=== PATIENT | female | born 1990 | race Caucasian/White ===

== ENCOUNTER 2021-05-03 09:34 | Emergency (ER) | payer OTHER ==
--- NOTE | 2021-05-03 09:54 | ERPHSYRPT ---
- History of Present Illness Time Seen by Provider: 05/03/21 09:40 Historian: patient Exam Limitations: no limitations Patient Subjective Stated Complaint: Pt states "I had pain in the center of my chest that started last night. It comes and goes. When the pain hits it gets worse when I breath. I was home alone and I got nervous so I came in to get checked." Triage Nursing Assessment: Pt presented alert and oriented X 3, skin pwd Pt ambulates with an upright steady gait, able to speak in clear full sentences pt in no apparent respiratory distress. Pt resting comfortably on the bed. Physician History: Patient is a 31-year-old female presents to our ED with complaints of substernal chest pain. Patient states pain started last night and lasted several minutes. Pain resolved. Patient states the pain comes and goes. Patient states the pain is worse when she takes a deep breath. Currently patient is pain-free. When present pain described as an ache that is well localized. No radiation. No associated nausea or vomiting. No diaphoresis. No rash. No trauma. No fever. Patient currently asymptomatic. Patient is not a smoker. Patient is no longer currently on control. Patient states she has had a stroke in the past related to control. Patient worried about blood clot. D-dimer ordered. Patient voices no other complaints or concerns at this time. Timing/Duration: yesterday Activities at Onset: none Quality: aching Location: substernal Chest Pain Radiation: no radiation Severity of Pain-Max: mild Severity of Pain-Current: none Modifying Factors: Improves With: other (Deep breath) Associated Symptoms: denies symptoms Prior Chest Pain/Cardiac Workup: no prior chest pain Nitro Today/Relief: no nitro taken today Aspirin Treatment Today: no aspirin today Allergies/Adverse Reactions: No Known Drug Allergies Allergy (Verified 02/18/14 00:51) Home Medications: Duloxetine HCl 30 mg [Cymbalta 30 MG Capsule] 30 mg PO DAILY 05/03/21 [History] Levothyroxine Sodium [Levothyroxine] 50 mcg PO DAILY 05/03/21 [History] Hx Tetanus, Diphtheria Vaccination/Date Given: No Hx Influenza Vaccination/Date Given: No Hx Pneumococcal Vaccination/Date Given: No Immunizations Up to Date: Yes Travel Risk - International Travel Have you traveled outside of the country in past 3 weeks: No - Coronavirus Screening Are you exhibiting any of the following symptoms?: No Close contact with a COVID-19 positive Pt in past 14-21 Days: No - Vaccine Status Have you recieved a Covid-19 vaccination: No - Review of Systems Constitutional: No Symptoms, No Fever, No Chills Eyes: No Symptoms Ears, Nose, & Throat: No Symptoms Respiratory: No Symptoms, No Cough, No Dyspnea Cardiac: No Symptoms, No Chest Pain, No Edema, No Syncope Abdominal/Gastrointestinal: No Symptoms, No Abdominal Pain, No Nausea, No Vom iting, No Diarrhea Genitourinary Symptoms: No Symptoms, No Dysuria Musculoskeletal: No Symptoms, No Back Pain, No Neck Pain Skin: No Symptoms, No Rash Neurological: No Symptoms, No Dizziness, No Focal Weakness, No Sensory Changes Psychological: No Symptoms Endocrine: No Symptoms Hematologic/Lymphatic: No Symptoms All Other Systems: Reviewed and Negative - Past Medical History Pertinent Past Medical History: Yes Neurological History: Stroke Respiratory History: Asthma Endocrine Medical History: Hypothyroidism Other Medical History: POSS OVARIAN CYST - Past Surgical History Past Surgical History: Yes Musculoskeletal: Orthopedic Surgery Other Surgical History: left knee surgery - Social History Smoking Status: Never smoker Exposure to second hand smoke: No Drug Use: none Patient Lives Alone: No - Female History Hx Last Menstrual Period: 04/19/2021 Hx Now: No - Nursing Vital Signs Nursing Vital Signs: Initial Vital Signs Temperature 97.2 F 05/03/21 09:35 Pulse Rate 86 05/03/21 09:35 Respiratory Rate 20 05/03/21 09:35 Blood Pressure 131/88 05/03/21 09:35 O2 Sat by Pulse Oximetry 98 05/03/21 09:35 Pain Scale Pain Intensity 0 - Physical Exam General Appearance: no apparent distress, alert Eye Exam: PERRL/EOMI, eyes nml inspection Ears, Nose, Throat Exam: normal ENT inspection, TMs normal, moist mucous membranes Neck Exam: normal inspection, non-tender, supple, full range of motion Respiratory Exam: normal breath sounds, lungs clear, airway intact, No chest tenderness, No respiratory distress Cardiovascular Exam: regular rate/rhythm, normal heart sounds, normal peripheral pulses Gastrointestinal/Abdomen Exam: soft, normal bowel sounds, No tenderness, No mass, No guarding Back Exam: normal inspection, No CVA tenderness, No vertebral tenderness Extremity Exam: normal inspection, normal range of motion Neurologic Exam: alert, oriented x 3, cooperative, normal mood/affect, sensation nml, No motor deficits Skin Exam: normal color, warm, dry Lymphatic Exam: No adenopathy SpO2 Interpretation: normal SpO2: 98 O2 Delivery: Room Air - Course Nursing assessment & vital signs reviewed: Yes EKG Interpreted by Me: RATE ([id number]), Sinus Rhythm, NORMAL AXIS, NORMAL INTERVALS - Radiology Exams Chest X-ray Interpretation: Teleradiologist Report (Portable chest demonstrates normal heart lungs and bony thorax.) Ordered Tests: Active Orders 24 hr Category Date Time Status Transport Aircrewman STAT Care 05/03/21 09:42 Active EKG-ER Only STAT Care 05/03/21 09:41 Active IV Insertion STAT Care 05/03/21 09:41 Active Pulse Oximetry (ED) STAT Care 05/03/21 09:41 Active CHEST 1 VIEW (PORTABLE) Stat Exams 05/03/21 09:42 Completed CBC W DIFF Stat Lab 05/03/21 09:45 Completed CMP Stat Lab 05/03/21 09:45 Completed D-DIMER QUANTITATIVE Stat Lab 05/03/21 09:45 Completed TROPONIN Q3H Lab 05/03/21 09:45 Completed TROPONIN Q3H Lab 05/03/21 12:45 Ordered TROPONIN Q3H Lab 05/03/21 15:45 Ordered TROPONIN Q3H Lab 05/03/21 18:45 Ordered TROPONIN Q3H Lab 05/03/21 21:45 Ordered UA W/RFX UR CULTURE Stat Lab 05/03/21 09:41 Ordered Lab/Rad Data: Laboratory Result Diagrams 05/03/21 09:45 05/03/21 09:45 Laboratory Results 05/03/21 05/03/21 05/03/21 Range/Units 09:45 09:45 09:45 WBC (4.0-10.5) K/mm3 RBC (4.1-5.4) M/mm3 Hgb (12.0-16.0) gm/dl Hct (35-47) % MCV (78-100) fl MCH (26-32) pg MCHC (32-36) g/dl RDW (11.5-14.0) % Plt Count (150-450) K/mm3 MPV (7.5-11.0) fl Gran % (36.0-66.0) % Eos # (Auto) (0-0.5) Absolute Lymphs (auto) (1.0-4.6) Absolute Monos (auto) (0.0-1.3) Lymphocytes % (24.0-44.0) % Monocytes % (0.0-12.0) % Eosinophils % (0.00-5.0) % Basophils % (0.0-0.4) % Absolute Granulocytes (1.4-6.9) Basophils # (0-0.4) D-Dimer < 215 L (215-500) ng/mL Sodium 140 (137-145) mmol/L Potassium 3.8 (3.5-5.1) mmol/L Chloride 106 (98-107) mmol/L Carbon Dioxide 25 (22-30) mmol/L Anion Gap 12.9 (5-15) MEQ/L BUN 13 (7-17) mg/dL Creatinine 0.61 (0.52-1.04) mg/dL Estimated GFR > 60.0 ML/MIN Glucose 114 H (74-106) mg/dL Calcium 8.9 (8.4-10.2) mg/dL Total Bilirubin 0.70 (0.2-1.3) mg/dL AST 43 H (14-36) U/L ALT 38 H (0-35) U/L Alkaline Phosphatase 73 (38-126) U/L Troponin I < 0.012 (0.000-0.034) ng/mL Serum Total Protein 7.0 (6.3-8.2) g/dL Albumin 4.3 (3.5-5.0) g/dL 05/03/21 Range/Units 09:45 WBC 8.9 (4.0-10.5) K/mm3 RBC 4.96 (4.1-5.4) M/mm3 Hgb 14.5 (12.0-16.0) gm/dl Hct 44.3 (35-47) % MCV 89.3 (78-100) fl MCH 29.2 (26-32) pg MCHC 32.7 (32-36) g/dl RDW 12.8 (11.5-14.0) % Plt Count 331 (150-450) K/mm3 MPV 10.1 (7.5-11.0) fl Gran % 65.4 (36.0-66.0) % Eos # (Auto) 0.13 (0-0.5) Absolute Lymphs (auto) 2.37 (1.0-4.6) Absolute Monos (auto) 0.50 (0.0-1.3) Lymphocytes % 26.7 (24.0-44.0) % Monocytes % 5.6 (0.0-12.0) % Eosinophils % 1.5 (0.00-5.0) % Basophils % 0.8 (0.0-0.4) % Absolute Granulocytes 5.80 (1.4-6.9) Basophils # 0.07 (0-0.4) D-Dimer (215-500) ng/mL Sodium (137-145) mmol/L Potassium (3.5-5.1) mmol/L Chloride (98-107) mmol/L Carbon Dioxide (22-30) mmol/L Anion Gap (5-15) MEQ/L BUN (7-17) mg/dL Creatinine (0.52-1.04) mg/dL Estimated GFR ML/MIN Glucose (74-106) mg/dL Calcium (8.4-10.2) mg/dL Total Bilirubin (0.2-1.3) mg/dL AST (14-36) U/L ALT (0-35) U/L Alkaline Phosphatase (38-126) U/L Troponin I (0.000-0.034) ng/mL Serum Total Protein (6.3-8.2) g/dL Albumin (3.5-5.0) g/dL - Progress Progress: improved Air Movement: good Progress Note: Patient reassessed. She feels well. Patient remains asymptomatic. Chest x-ray negative. D-dimer negative. Troponin negative. Labs essentially nonremarkable. Vitals are within normal limits. Patient states he is ready for discharge. No indication for further work-up at this time. Will discharge home. Patient's chest pain worse with deep inspiration. Likely pleurisy. Possible GERD patient agrees to follow-up with her primary care doctor within 48 hours for reevaluation. Portions of this note were created with voice recognition technology. There may be grammatical, spelling, punctuation or sound alike errors 05/03/21 10:38 05/03/21 10:40 Blood Culture(s) Obtained: No Antibiotics given: No Counseled pt/family regarding: lab results, diagnosis, need for follow-up, rad results - Departure Departure Disposition: Home Clinical Impression: Pleuritic chest pain Condition: Stable Critical Care Time: No Additional Instructions: Discharge/Care Plan JOHN GUTIÉRREZ was seen on 05/03/21 in the Emergency Room. The patient was counseled regarding Diagnosis,Lab results, Imaging studies, need for follow up and when to return to the Emergency Room. Prescriptions given: Discharge Note I have spoken with the patient and/or caregivers. I have explained the patient's condition, diagnosis and treatment plan based on the information available to me at this time. I have answered the patient's and/or caregiver's questions and addressed any concerns. The patient and/or caregivers have as good understanding of the patient's diagnosis, condition and treatment plan as can be expected at this point. The vital signs have been stable. The patient's condition is stable and appropriate for discharge from the emergency department. The patient will pursue further outpatient evaluation with the primary care physician or other designated or consulting physician as outlined in the disc harge instructions. The patient and/or caregivers are agreeable to this plan of care and follow-up instructions have been explained in detail. The patient and/or caregivers have received these instruction. The patient/and or caregivers are aware that any significant change in condition or worsening of symptoms should prompt an immediate return to this or the closest emergency department or call 911.
[2021-05-03 09:58] LABS: BASOPHIL % 0.8 % (0.0-0.4); Basophil (Absolute #) 0.07 (0-0.4); Eosinophil % 1.5 % (0.00-5.0); Eosinophil (Absolute #) 0.13 (0-0.5); Hematocrit 44.3 % (35-47); Hemoglobin 14.5 gm/dl (12.0-16.0); Lymphocyte (Absolute #) 2.37 (1.0-4.6); Lymphocytes % 26.7 % (24.0-44.0); Mean Cell Volume 89.3 fl (78-100); Mean Corpuscular Hemoglobin 29.2 pg (26-32); Mean Corpuscular Hgb Concent. 32.7 g/dl (32-36); Mean Platelet Volume 10.1 fl (7.5-11.0); Monocytes % 5.6 % (0.0-12.0); Neutrophil % 65.4 % (36.0-66.0); Platelet Count 331 K/mm3 (150-450); Red Blood Count 4.96 M/mm3 (4.1-5.4); Red Cell Distribution Width 12.8 % (11.5-14.0); White Blood Count 8.9 K/mm3 (4.0-10.5)
[2021-05-03 10:08] LABS: ALBUMIN 4.3 g/dL (3.5-5.0); ALKALINE PHOSPHATASE 73 U/L (38-126); ANION GAP 12.9 MEQ/L (5-15); BLOOD UREA NITROGEN 13 mg/dL (7-17); CHLORIDE 106 mmol/L (98-107); Calcium 8.9 mg/dL (8.4-10.2); Carbon Dioxide 25 mmol/L (22-30); Creatinine 1 0.61 mg/dL (0.52-1.04); EST GLOMERULAR FILTRATION RATE > 60.0 ML/MIN; Glucose 114 mg/dL (74-106); Potassium 3.8 mmol/L (3.5-5.1); SGOT/AST 43 U/L (14-36); SGPT/ALT 38 U/L (0-35); SODIUM 140 mmol/L (137-145)
--- NOTE | 2021-05-03 10:19 | XRAY ---
Indication: Intermittent chest pain. Comparison: None Portable chest demonstrates normal heart, lungs, and bony thorax.
== END 2021-05-03 11:45 | disposition home or self-care (01) ==
LOC: ED 09:34
DX: R07.81 Pleurodynia (principal)
CPT/HCPCS: 36000; 36415; 71045; 80053; 84484; 85025; 85379; 93005; 93041; 94760; 99284

== ENCOUNTER 2023-11-03 11:28 | Emergency (ER) | payer OTHER ==
[2023-11-03 11:53] VITALS: RESP 18; TEMP 96.6
[2023-11-03] MEDS ORDERED: TORAdol 30 mg Injection ONE (12:25)
[2023-11-03] MEDS: TORAdol 30 mg Injection IV ONE (12:27)
[2023-11-03 12:31] LABS: HCG URINE TEST NEGATIVE (NEGATIVE)
[2023-11-03 12:55] LABS: Absolute Neutrophil Ct (ANC) 6.34 x10^3/uL (1.4-6.9); BASOPHIL % 1.2 % (0.0-0.4); Basophil (Absolute #) 0.12 x10^3/uL (0-0.4); Eosinophil % 1.3 % (0.00-5.0); Eosinophil (Absolute #) 0.13 x10^3/uL (0-0.5); Hematocrit 42.9 % (35-47); Hemoglobin 14.5 g/dL (12.0-16.0); IMMATURE GRAN # 0.04 x10^3u/L (0.00-0.03); IMMATURE GRAN % 0.4 % (0.00-0.4); Lymphocyte (Absolute #) 2.78 x10^3/uL (1.0-4.6); Lymphocytes % 27.8 % (24.0-44.0); Mean Cell Volume 88.5 fL (78-100); Mean Corpuscular Hemoglobin 29.9 pg (26-32); Mean Corpuscular Hgb Concent. 33.8 g/dL (32-36); Mean Platelet Volume 10.6 fL (7.5-11.0); Monocyte (Absolute #) 0.58 x10^3/uL (0.0-1.3); Monocytes % 5.8 % (0.0-12.0); Neutrophil % 63.5 % (36.0-66.0); Platelet Count 323 x10^3/uL (150-450); Red Blood Count 4.85 x10^6/uL (4.1-5.4); Red Cell Distribution Width 12.3 % (11.5-14.0)
[2023-11-03 13:18] LABS: ALBUMIN 4.4 g/dL (3.5-5.0); BILIRUBIN,TOTAL 0.7 mg/dL (0.2-1.3); Calcium 9.3 mg/dL (8.4-10.2); Creatinine 1 0.61 mg/dL (0.52-1.04); EST GLOMERULAR FILTRATION RATE 122.5 ML/MIN; NT PRO BNPII 38.6 pg/mL (<300); Potassium 3.7 mmol/L (3.5-5.1); Total Protein 7.3 g/dL (6.3-8.2)
[2023-11-03 14:14] VITALS: BP 129/82; PULSE 77; O2SAT 97
[2023-11-03] MEDS ORDERED: NORCO 10-325 MG PO PRN (15:13)
--- NOTE | 2023-11-03 15:19 | ERPHSYRPT ---
- History of Present Illness Time Seen by Provider: 11/03/23 11:42 Historian: patient Exam Limitations: no limitations Patient Subjective Stated Complaint: Left sided rib pain Triage Nursing Assessment: Patient ambulated back to ED and transferred self to bed. Patient A+O X3. Patient's skin pink, warm and dry. Patient complains of pain underneath left breast/rib that is worse when moving 10/10 for the past week. Patient states over the past month she has had an occasional cough. Physician History: 33-year-old female presented to the ER with complaint of left sided rib pain for 1 week. Patient denies any fall or trauma. Patient reported it is underneath her breast and moves backward, aggravated with palpation, deep breathing and moving in a certain direction. Patient has tried [id number] medication li ke Tylenol with no significant relief. No difficulty breathing. Occasional cough. No history of coronary artery disease, PE. Aspirin Treatment Today: no aspirin today Allergies/Adverse Reactions: No Known Drug Allergies Allergy (Verified 11/03/23 11:42) Hx Tetanus, Diphtheria Vaccination/Date Given: No Hx Influenza Vaccination/Date Given: No Hx Pneumococcal Vaccination/Date Given: No Immunizations Up to Date: Yes Travel Risk - International Travel Have you traveled outside of the country in past 3 weeks: No - Emerging Infectious Disease Are you exhibiting symptoms associated with any current EIDs: No - Review of Systems Constitutional: No Symptoms Ears, Nose, & Throat: No Symptoms Respiratory: Cough Cardiac: Chest Pain Abdominal/Gastrointestinal: No Symptoms Genitourinary Symptoms: No Symptoms Musculoskeletal: No Symptoms Skin: No Symptoms Neurological: No Symptoms Psychological: No Symptoms Endocrine: No Symptoms Hematologic/Lymphatic: No Symptoms - Past Medical History Pertinent Past Medical History: Yes Neurological History: Stroke Respiratory History: Asthma Endocrine Medical History: Hypothyroidism Other Medical History: POSS OVARIAN CYST - Past Surgical History Past Surgical History: Yes Musculoskeletal: Orthopedic Surgery Other Surgical History: left knee surgery - Female History Hx Last Menstrual Period: ablation Hx Now: (unkn) - Social History Smoking Status: Never smoker Exposure to second hand smoke: No Drug Use: marijuana Patient Lives Alone: No - Nursing Vital Signs Nursing Vital Signs: Initial Vital Signs Temperature 96.6 F 11/03/23 11:45 Pulse Rate 73 11/03/23 11:45 Respiratory Rate 18 11/03/23 11:45 Blood Pressure 124/82 11/03/23 11:45 O2 Sat by Pulse Oximetry 96 11/03/23 11:45 Pain Scale Pain Intensity 9 - Physical Exam General Appearance: no apparent distress, alert Eye Exam: PERRL/EOMI Ears, Nose, Throat Exam: normal ENT inspection, TMs normal, pharynx normal, moist mucous membranes Neck Exam: normal inspection, non-tender, supple, full range of motion Respiratory Exam: normal breath sounds, chest tenderness (Left mid to lower chest wall with no crepitus. No rash. Moderate tenderness.) Cardiovascular Exam: regular rate/rhythm, normal heart sounds Gastrointestinal/Abdomen Exam: soft, normal bowel sounds, No tenderness Back Exam: normal inspection, normal range of motion Extremity Exam: normal inspection, normal range of motion Neurologic Exam: alert, oriented x 3, cooperative Skin Exam: normal color SpO2 Interpretation: normal SpO2: 97 O2 Delivery: Room Air () - Course EKG Interpreted by Me: RATE ([id number]), NORMAL AXIS, NORMAL INTERVALS, Q-wave Ordered Tests: Active Orders 24 hr Category Date Time Status Literacy Teacher STAT Care 11/03/23 12:05 Completed EKG-ER Only STAT Care 11/03/23 12:05 Completed IV Insertion STAT Care 11/03/23 12:05 Completed RIBS UNILATERAL W/ PA CXR Stat Exams 11/03/23 12:06 Taken CBC W DIFF Stat Lab 11/03/23 12:50 Completed CMP Stat Lab 11/03/23 12:50 Completed D-DIMER QUANTITATIVE Stat Lab 11/03/23 12:50 Completed HCG QUALITATIVE, URINE Stat Lab 11/03/23 12:10 Completed NT PRO BNPII Stat Lab 11/03/23 12:50 Completed TROPONIN Q4H Lab 11/03/23 12:50 Completed Medication Summary Discontinued Medications Generic Name Dose Route Start Last Admin Trade Name Freq PRN Reason Stop Dose Admin Hydrocodone Bitart/Acetaminophen 1 tablet 11/03/23 15:13 Hydrocodone/Acetamin 10-325 Mg Tablet PO 11/08/23 15:12 Q4H PRN PRN PAIN Ketorolac Tromethamine 30 mg 11/03/23 12:06 11/03/23 12:27 Ketorolac Tromethamine 30 Mg/Ml Inj IV 11/03/23 12:07 30 mg STAT ONE Administration Ketorolac Tromethamine Confirm 11/03/23 12:25 Ketorolac Tromethamine 30 Mg/Ml Inj Administered 11/03/23 12:26 Dose 30 mg .ROUTE .K-MED ONE Lab/Rad Data: Laboratory Result Diagrams 11/03/23 12:50 11/03/23 12:50 Laboratory Results 11/03/23 11/03/23 11/03/23 Range/Units 12:50 12:50 12:50 WBC (4.0-10.5) x10^3/uL RBC (4.1-5.4) x10^6/uL Hgb (12.0-16.0) g/dL Hct (35-47) % MCV (78-100) fL MCH (26-32) pg MCHC (32-36) g/dL RDW (11.5-14.0) % Plt Count (150-450) x10^3/uL MPV (7.5-11.0) fL Gran % (36.0-66.0) % Immature Gran % (Auto) (0.00-0.4) % Nucleat RBC Rel Count (0.00-0.1) % Eos # (Auto) (0-0.5) x10^3/uL Immature Gran # (Auto) (0.00-0.03) x10^3u/L Absolute Lymphs (auto) (1.0-4.6) x10^3/uL Absolute Monos (auto) (0.0-1.3) x10^3/uL Absolute Nucleated RBC (0.00-0.01) x10^3u/L Lymphocytes % (24.0-44.0) % Monocytes % (0.0-12.0) % Eosinophils % (0.00-5.0) % Basophils % (0.0-0.4) % Absolute Granulocytes (1.4-6.9) x10^3/uL Basophils # (0-0.4) x10^3/uL D-Dimer < 0.19 (0.0-0.50) mg/L Sodium 141 (135-145) mmol/L Potassium 3.7 (3.5-5.1) mmol/L Chloride 111 H (98-107) mmol/L Carbon Dioxide 22 (22-30) mmol/L Anion Gap 11.0 (5-15) MEQ/L BUN 13 (7-17) mg/dL Creatinine 0.61 (0.52-1.04) mg/dL Estimated GFR 122.5 ML/MIN Glucose 95 (74-106) mg/dL Calcium 9.3 (8.4-10.2) mg/dL Total Bilirubin 0.70 (0.2-1.3) mg/dL AST 34 (14-36) U/L ALT 40 H (0-35) U/L Alkaline Phosphatase 64 (38-126) U/L Troponin I < 0.012 (0.000-0.033) ng/mL NT-Pro-B Natriuret Pep 38.6 (<300) pg/mL Serum Total Protein 7.3 (6.3-8.2) g/dL Albumin 4.4 (3.5-5.0) g/dL Urine HCG, Qual (NEGATIVE) 11/03/23 11/03/23 Range/Units 12:50 12:10 WBC 10.0 (4.0-10.5) x10^3/uL RBC 4.85 (4.1-5.4) x10^6/uL Hgb 14.5 (12.0-16.0) g/dL Hct 42.9 (35-47) % MCV 88.5 (78-100) fL MCH 29.9 (26-32) pg MCHC 33.8 (32-36) g/dL RDW 12.3 (11.5-14.0) % Plt Count 323 (150-450) x10^3/uL MPV 10.6 (7.5-11.0) fL Gran % 63.5 (36.0-66.0) % Immature Gran % (Auto) 0.4 (0.00-0.4) % Nucleat RBC Rel Count 0.0 (0.00-0.1) % Eos # (Auto) 0.13 (0-0.5) x10^3/uL Immature Gran # (Auto) 0.04 H (0.00-0.03) x10^3u/L Absolute Lymphs (auto) 2.78 (1.0-4.6) x10^3/uL Absolute Monos (auto) 0.58 (0.0-1.3) x10^3/uL Absolute Nucleated RBC 0.00 (0.00-0.01) x10^3u/L Lymphocytes % 27.8 (24.0-44.0) % Monocytes % 5.8 (0.0-12.0) % Eosinophils % 1.3 (0.00-5.0) % Basophils % 1.2 (0.0-0.4) % Absolute Granulocytes 6.34 (1.4-6.9) x10^3/uL Basophils # 0.12 (0-0.4) x10^3/uL D-Dimer (0.0-0.50) mg/L Sodium (135-145) mmol/L Potassium (3.5-5.1) mmol/L Chloride (98-107) mmol/L Carbon Dioxide (22-30) mmol/L Anion Gap (5-15) MEQ/L BUN (7-17) mg/dL Creatinine (0.52-1.04) mg/dL Estimated GFR ML/MIN Glucose (74-106) mg/dL Calcium (8.4-10.2) mg/dL Total Bilirubin (0.2-1.3) mg/dL AST (14-36) U/L ALT (0-35) U/L Alkaline Phosphatase (38-126) U/L Troponin I (0.000-0.033) ng/mL NT-Pro-B Natriuret Pep (<300) pg/mL Serum Total Protein (6.3-8.2) g/dL Albumin (3.5-5.0) g/dL Urine HCG, Qual NEGATIVE (NEGATIVE) - Progress Progress: improved, re-examined Air Movement: good Progress Note: 11/03/23 15:16 33-year-old is evaluated in the ER for left anterior lateral and posterior chest wall pain without any fall or trauma, moderate to severe sharp, aggravated with movements palpation and deep breathing. Minimal nonproductive cough occasionally. Patient has no history of PE or coronary artery disease. EKG is normal sinus rhythm. I did not appreciate any rash on the chest wall. No crepitus. I have obtained rib series and PA chest x-ray which are negative for acute rib fracture, pneumothorax reviewed by me, official report is pending. Patient has normal white count, unremarkable chemistries and negative troponin/D-dimers. Her pain is more of a musculoskeletal. She is given Toradol and [place] for symptomatic relief, on reevaluation she is feeling much better. Pain is reproducible and seems more of a musculoskeletal and less likely cardiac etiology. With 1 negative troponin and negative D-dimers I do not think patient needs any other workup in the ER. I will put her on NSAIDs to go home. Recommended deep breathing exercises and outpatient follow-up. Discussed signs symptoms of worsening needing return to ER which she seems understanding. S table for discharge. Blood Culture(s) Obtained: No Antibiotics given: No Counseled pt/family regarding: lab results, diagnosis, need for follow-up, rad results Medical Desision Making - Diagnostic Testing Diagnostic test were ordered, analyzed, and reviewed by me: Yes Radiological Interpretation: Interpreted by me, Reviewed by me - Risk of complications The pt has a mod risk of morbidity or mortality based on: Need for prescription drug management - Departure Departure Disposition: Home Clinical Impression: Chest wall pain Condition: Stable Critical Care Time: No Referrals: KAVON MAC MD [Primary Care Provider] - Follow up with PCP 1 day Instructions: Bruised Rib, Chest Pain, Adult ED Additional Instructions: Take Tylenol/ibuprofen as needed. Follow-up with your primary care for ree valuation. Do deep breathing exercises. Return to ER for worsening pain or if having difficulty breathing, palpitations or if feeling dizzy lightheaded, worsening cough or fever chills etc. Prescriptions: Ibuprofen 600 mg PO Q6HPRN PRN 10 Days #20 tablet PRN Reason: Pain
--- NOTE | 2023-11-03 19:59 | XRAY ---
Indication: Left chest pain. Comparison: None 2 view left ribs demonstrates tiny left lung base calcified granuloma. No other bony, articular, or soft tissue abnormalities.
== END 2023-11-03 15:45 | disposition home or self-care (01) ==
LOC: ED 11:28
DX: R07.89 Other chest pain (principal)
CPT/HCPCS: 36000; 36415; 71101; 80053; 81025; 83880; 84484; 85025; 85379; 93005; 93041; 96374; 99284; J1885